=== PATIENT | female | born 1995 ===

== ENCOUNTER 2018-11-28 15:52 | Emergency (ER) | payer MEDICAID, OTHER ==
[~2018-11-28] VITALS: Ht 165.1 cm; Wt 86.3 kg
--- NOTE | 2018-11-28 16:33 | NUR ---
LUNCH RN: PT PLACED ON PELVIC BED, LABS DRAWN, TAKEN TO US. ROOM SET UP FOR PELVIC EXAM UPON PT RETURN TO ROOM.
[2018-11-28 16:40] LABS: BASOPHILS # (AUTO) 0.15 x10^3/uL (0-0.1); BASOPHILS % (AUTO) 2 % (0-1); EOSINOPHILS # (AUTO) 0.22 x10^3/uL (0-0.4); EOSINOPHILS % (AUTO) 2 % (1-7); LYMPHOCYTES # (AUTO) 1.74 x10^3/uL (1-3.4); LYMPHOCYTES % (AUTO) 18 % (22-44); MD NO; MEAN CORPUSCULAR HEMOGLOBIN 31.8 pg (27.0-34.8); MEAN CORPUSCULAR HGB CONC 33.3 g/dL (32.4-35.8); MEAN CORPUSCULAR VOLUME 95.5 fL (80-100); MEAN PLATELET VOLUME 7.5 fL (7.4-10.4); MONOCYTES # (AUTO) 0.57 x10^3/uL (0.2-0.8); MONOCYTES % (AUTO) 6 % (2-9); NEUTROPHILS # (AUTO) 6.97 x10^3/uL (1.8-6.8); NEUTROPHILS % (AUTO) 72 % (42-75); PLATELET COUNT 289 x10^3/uL (130-400); RED BLOOD COUNT 4.15 x10^6/uL (3.82-5.3); RED CELL DISTRIBUTION WIDTH 13.4 % (9.6-15.2)
[2018-11-28 16:47] LABS: ALBUMIN 3.7 g/dL (3.4-5.0); ANION GAP 9 mmol/L (5-15); CALCIUM 8.7 mg/dL (8.5-10.1); CHLORIDE 104 mmol/L (98-107)
--- NOTE | 2018-11-28 16:57 | NUR ---
LUNCH RN: PELVIC EXAM COMPLETE, SWABS SENT TO LAB. CATH UA COLLECTED AND SENT TO LAB. AWAITING TEST RESULTS AT THIS TIME
[2018-11-28 17:12] LABS: CREATININE 0.77 mg/dL (0.55-1.02)
[2018-11-28 17:14] LABS: CLUE CELLS PRESENT (NONE SEEN); WET PREP WBCS FEW (FEW)
[2018-11-28 17:40] LABS: CULTURE INDICATED? YES; MICROSCOPIC INDICATED
[2018-11-28 18:15] VITALS: BP 114/51
== END 2018-11-28 18:20 | disposition home or self-care (01) ==
LOC: ED 17:00
DX: O23.591 Infection of other part of genital tract in pregnancy, first trimester (principal); B96.89 Other specified bacterial agents as the cause of diseases classified elsewhere; Z3A.01 Less than 8 weeks gestation of pregnancy; O20.0 Threatened abortion
CPT/HCPCS: 36415; 76801; 80048; 81001; 82040; 84702; 85025; 86901; 87086; 87210; 87491; 87591; 87808; 99284

== ENCOUNTER 2019-07-10 05:38 | Inpatient (IN) | payer MEDICAID ==
[~2019-07-10] VITALS: Ht 165.1 cm; Wt 75.5 kg
[2019-07-10 05:49] VITALS: BP 126/78
[2019-07-10 06:23] VITALS: BP 126/78
[2019-07-10 06:23] LABS: MICROSCOPIC NOT IND
[2019-07-10] MEDS ORDERED: OXYTOCIN 30U/ 0.9% NaCL 500ML 500 ML IV ONE (06:27)
[2019-07-10] MEDS ORDERED: LACTATED RINGERS 1,000 ML IV SCH (06:27)
[2019-07-10] MEDS ORDERED: D5%-LACTATED RINGERS 1,000 ML IV SCH ×2 (06:27→13:48)
[2019-07-10] MEDS ORDERED: CALCIUM CARBONATE 500 MG TAB.CHEW PO PRN (06:30)
[2019-07-10] MEDS ORDERED: SODIUM CITRATE/CITRIC ACID 30 ML UDC PO PRN (06:30)
[2019-07-10] MEDS ORDERED: METOCLOPRAMIDE 5 MG/ML, 2ML IVPush PRN (06:30)
[2019-07-10] MEDS ORDERED: TERBUTALINE 1 MG/ML, 1ML SQ PRN (06:30)
[2019-07-10] MEDS ORDERED: FENTANYL PF 100 MCG/2ML IV PRN (06:30)
[2019-07-10] MEDS ORDERED: ONDANSETRON 2MG/ML, 2ML IVPush PRN (06:30)
[2019-07-10] MEDS ORDERED: MISOPROSTOL 200 MCG TABLET ONE (06:39)
[2019-07-10] MEDS ORDERED: NEWBORN KIT ONE (06:39)
[2019-07-10] MEDS ORDERED: LIDOCAINE 1%, 20ML ONE ×2 (06:39→19:55)
[2019-07-10] MEDS ORDERED: OXYTOCIN 30U/ 0.9% NaCL 500ML 500 ML ONE ×2 (06:39→20:00)
[2019-07-10 06:40] LABS: AMPHETAMINE SCREEN, URINE Negative (Negative); BARBITURATE SCREEN, URINE Negative (Negative); BENZODIAZEPINE SCREEN, URINE Negative (Negative); CANNABINOID SCREEN, URINE Negative (Negative); COCAINE SCREEN, URINE Negative (Negative); METHADONE SCREEN, URINE Negative (Negative); OPIATE SCREEN, URINE Negative (Negative)
[2019-07-10 07:04] LABS: BASOPHILS # (AUTO) 0.05 x10^3/uL (0-0.1); BASOPHILS % (AUTO) 0 % (0-1); EOSINOPHILS # (AUTO) 0.14 x10^3/uL (0-0.4); EOSINOPHILS % (AUTO) 1 % (1-7); LYMPHOCYTES # (AUTO) 2.03 x10^3/uL (1-3.4); LYMPHOCYTES % (AUTO) 15 % (22-44); MD NO; MEAN CORPUSCULAR HEMOGLOBIN 28.7 pg (27.0-34.8); MEAN CORPUSCULAR HGB CONC 33.3 g/dL (32.4-35.8); MEAN CORPUSCULAR VOLUME 86.1 fL (80-100); MEAN PLATELET VOLUME 7.6 fL (7.4-10.4); MONOCYTES # (AUTO) 0.69 x10^3/uL (0.2-0.8); MONOCYTES % (AUTO) 5 % (2-9); NEUTROPHILS # (AUTO) 11.11 x10^3/uL (1.8-6.8); NEUTROPHILS % (AUTO) 79 % (42-75); PLATELET COUNT 258 x10^3/uL (130-400); RED BLOOD COUNT 4.27 x10^6/uL (3.82-5.3); RED CELL DISTRIBUTION WIDTH 13.4 % (9.6-15.2)
[2019-07-10] MEDS ORDERED: OXYTOCIN 30U/ 0.9% NaCL 500ML 500 ML IV PRN (07:36)
[2019-07-10] MEDS ORDERED: AMPICILLIN 2 GM in SODIUM CHLORIDE 0.9% 100 ML IVPB STA (07:51)
[2019-07-10] MEDS: AMPICILLIN 1 GM in SODIUM CHLORIDE 0.9% 50 ML IVPB SCH ×2 (08:00→12:06)
[2019-07-10] MEDS ORDERED: ONDANSETRON 2MG/ML, 2ML ONE ×2 (12:12→12:15)
[2019-07-10] MEDS: LACTATED RINGERS 1,000 ML INTUTE SCH ×2 (13:22→18:50)
[2019-07-10] MEDS ORDERED: FENTANYL PF 100 MCG/2ML ONE ×4 (13:28→19:44)
[2019-07-10] MEDS ORDERED: LACTATED RINGERS 1,000 ML INTUTE PRN (13:30)
[2019-07-10] MEDS: FENTANYL PF 100 MCG/2ML IVPush PRN ×4 (13:30→19:53)
[2019-07-10] MEDS: LACTATED RINGERS 1,000 ML IV SCH ×2 (13:48→21:48)
[2019-07-10] MEDS ORDERED: AMPICILLIN 1 GM in SODIUM CHLORIDE 0.9% 100 ML IVPB SCH (15:58)
[2019-07-10] MEDS: AMPICILLIN 1 GM in SODIUM CHLORIDE 0.9% 100 ML IVPB SCH ×2 (16:05→20:00)
[2019-07-10] MEDS: OXYTOCIN 30U/ 0.9% NaCL 500ML 500 ML IV SCH (20:09)
[2019-07-10] MEDS ORDERED: SIMETHICONE 80 MG CHEW TAB PO PRN (20:30)
[2019-07-10] MEDS ORDERED: ACETAMINOPHEN 325 MG TABLET PO PRN (20:30)
[2019-07-10] MEDS ORDERED: ONDANSETRON 2MG/ML, 2ML IV PRN (20:30)
[2019-07-10] MEDS ORDERED: OXYcodone/APAP 5/325MG TABLET PO PRN ×2 (20:30)
[2019-07-10] MEDS ORDERED: MISOPROSTOL 200 MCG TABLET PR PRN (20:30)
[2019-07-10 22:00] VITALS: BP 123/80
[2019-07-11] MEDS: IBUPROFEN 600 MG TABLET PO PRN ×3 (00:41→16:50)
[2019-07-11 01:45] VITALS: BP 103/64
[2019-07-11] MEDS: LACTATED RINGERS 1,000 ML IV SCH ×4 (05:48→22:15)
[2019-07-11 05:53] LABS: MEAN CORPUSCULAR HEMOGLOBIN 28.7 pg (27.0-34.8); MEAN CORPUSCULAR HGB CONC 33.3 g/dL (32.4-35.8); MEAN CORPUSCULAR VOLUME 86.1 fL (80-100); MEAN PLATELET VOLUME 7.8 fL (7.4-10.4); PLATELET COUNT 273 x10^3/uL (130-400); RED BLOOD COUNT 3.85 x10^6/uL (3.82-5.3); RED CELL DISTRIBUTION WIDTH 13.8 % (9.6-15.2)
[2019-07-11 06:00] VITALS: BP 92/58
[2019-07-11] MEDS: OXYTOCIN 30U/ 0.9% NaCL 500ML 500 ML IV SCH ×2 (06:09→16:09)
[2019-07-11 06:14] LABS: BASOPHILS # (AUTO) 0.04 x10^3/uL (0-0.1); BASOPHILS % (AUTO) 0 % (0-1); EOSINOPHILS # (AUTO) 0.04 x10^3/uL (0-0.4); EOSINOPHILS % (AUTO) 0 % (1-7); LYMPHOCYTES % (AUTO) 12 % (22-44); MD SCAN; MONOCYTES # (AUTO) 0.99 x10^3/uL (0.2-0.8); MONOCYTES % (AUTO) 5 % (2-9); NEUTROPHILS % (AUTO) 83 % (42-75)
[2019-07-11 08:00] VITALS: BP 105/63
[2019-07-11] MEDS: PRENATAL VIT/IRON/FA 1 EACH TABLET PO SCH (08:09)
[2019-07-11] MEDS: DOCUSATE 100 MG CAPSULE PO PRN (08:09)
[2019-07-11 11:30] VITALS: BP 99/63
[2019-07-11 16:50] VITALS: BP 121/71
[2019-07-11 19:15] VITALS: BP 86/51
[2019-07-12 00:20] VITALS: BP 107/72
[2019-07-12] MEDS: OXYTOCIN 30U/ 0.9% NaCL 500ML 500 ML IV SCH ×2 (02:09→02:22)
[2019-07-12] MEDS: IBUPROFEN 600 MG TABLET PO PRN ×3 (03:49→17:14)
[2019-07-12] MEDS ORDERED: IBUP-1222 PO (08:07)
[2019-07-12 08:10] VITALS: BP 103/68
[2019-07-12] MEDS: DOCUSATE 100 MG CAPSULE PO PRN (09:16)
[2019-07-12] MEDS: PRENATAL VIT/IRON/FA 1 EACH TABLET PO SCH (09:16)
== END 2019-07-12 18:18 | disposition home or self-care (01) | DRG 807 ==
LOC: LDOP 05:38 → LDIP 06:23 → 2NW 22:05
PROVIDERS: ADMIT Obstetrics & Gynecology; ATTEND Obstetrics & Gynecology
PROC: 10E0XZZ Delivery of Products of Conception, External Approach (ICD-10-PCS; principal; 2019-07-10)
PROC: 0KQM0ZZ Repair Perineum Muscle, Open Approach (ICD-10-PCS; 2019-07-10)
PROC: 10H07YZ Insertion of Other Device into Products of Conception, Via Natural or Artificial Opening (ICD-10-PCS; 2019-07-10)
DX: O76 Abnormality in fetal heart rate and rhythm complicating labor and delivery (principal); Z37.0 Single live birth; O70.1 Second degree perineal laceration during delivery; Z3A.38 38 weeks gestation of pregnancy
CPT/HCPCS: 36415; 80307; 81003; 85025; 86592; 86850; 86900; 87086; 89060; G0378; J0290; J2405; J3010; J2590; J7120; Q0114